=== PATIENT | male | born 1990 | race Caucasian/White ===

== ENCOUNTER 2024-05-22 14:04 | Emergency (ER) | payer BC ==
[~2024-05-22] VITALS: Ht 170.2 cm; Wt 79.4 kg
[2024-05-22 14:12] VITALS: BP 114/74; TEMP 98.1
[2024-05-22] MEDS ORDERED: IPRATROPIUM NEB FS 0.5 MG/2.5 ML AMPUL.NEB ONE (14:45)
[2024-05-22] MEDS ORDERED: ALBUTEROL FS 2.5 MG/3 ML VIAL.NEB ONE (14:45)
[2024-05-22 14:50] VITALS: O2SAT 99
[2024-05-22] MEDS: IPRATROPIUM NEB FS 0.5 MG/2.5 ML AMPUL.NEB NEB ONE (14:50)
[2024-05-22] MEDS: ALBUTEROL FS 2.5 MG/3 ML VIAL.NEB NEB ONE (14:50)
[2024-05-22 15:03] VITALS: O2SAT 100
[2024-05-22] MEDS ORDERED: IPRA12.9 INH (15:18)
== END 2024-05-22 16:10 | disposition home or self-care (01) ==
LOC: ER 14:04
DX: R07.89 Other chest pain (principal); R06.02 Shortness of breath; J45.909 Unspecified asthma, uncomplicated